=== PATIENT | female | born 1980 | race Caucasian/White ===

== ENCOUNTER 2022-04-21 16:14 | Inpatient (IN) | payer OTHER ==
[2022-04-21 20:42] VITALS: BMI 30.4
[2022-04-21] MEDS ORDERED: ACETAMINOPHEN 325 MG TABLET (FP) PO PRN (23:18)
[2022-04-21] MEDS ORDERED: MAGNESIUM HYDROX 2400MG/30ML ORAL SUSPENSION 30 ML CUP PO PRN (23:18)
[2022-04-21] MEDS ORDERED: P-EPHED 60MG/TRIPROLIDI 2.5MG TABLET PO PRN (23:18)
[2022-04-21] MEDS ORDERED: LOPERAMIDE HCL 2 MG CAPSULE PO PRN (23:18)
[2022-04-21] MEDS ORDERED: MAGNESIUM CITRATE 300 ML BOTTLE PO PRN (23:18)
[2022-04-21] MEDS ORDERED: MELATONIN 5 MG TABLETS PO PRN (23:18)
[2022-04-21] MEDS ORDERED: guaiFENesin 200 MG/10 ML 10 ML UNIT-DOSE CUPS PO PRN (23:18)
[2022-04-22] MEDS ORDERED: DIVALPROEX NA *ER* EXTEND REL 500 MG TABLET.SA (FP) PO SCH ×2 (10:00→22:00)
[2022-04-22] MEDS: BUDESONIDE/FORMETEROL FUMARATE 80/4.5 mcg INHALER IH SCH ×2 (12:45→21:33)
[2022-04-22] MEDS: PRENATAL VITAMINS W/ FOLIC ACID TABLET (FP) PO SCH (12:45)
[2022-04-22] MEDS: IBUPROFEN 400 MG TABLET (FP) PO PRN (13:35)
[2022-04-22 13:43] LABS: HEMATOCRIT 36.4 % (32.4-45.2); HEMOGLOBIN 12.2 GM/dL (10.7-15.3); MCH 30.6 pg (25.7-33.7); MCHC 33.4 g/dl (32.0-36.0); MEAN CELL VOLUME 91.4 fl (80-96); MEAN PLT VOLUME 9.2 fl (7.5-11.1); PLATELET COUNT 319 10^3/uL (134-434); RBC 3.98 M/mm3 (3.60-5.2); RDW 13.5 % (11.6-15.6); WHITE BLOOD COUNT 9.2 K/mm3 (4.0-10.0)
[2022-04-22 13:48] LABS: CALCIUM 8.4 mg/dL (8.5-10.1)
[2022-04-22 13:49] LABS: ALBUMIN 2.9 g/dl (3.4-5.0); BLOOD UREA NITROGEN 19.2 mg/dL (7-18)
[2022-04-22 13:52] LABS: CREATININE 0.7 mg/dL (0.55-1.3)
[2022-04-22 13:53] LABS: BILIRUBIN,TOTAL 0.3 mg/dL (0.2-1)
[2022-04-22 13:54] LABS: TOT PROT 5.8 g/dl (6.4-8.2)
[2022-04-22 15:23] VITALS: RESP 18
[2022-04-22] MEDS: BACITRACIN 0.9 GM PACKET TP SCH (19:53)
[2022-04-22] MEDS: MELATONIN 5 MG TABLETS PO SCH (21:33)
[2022-04-22] MEDS: THIAMINE HCL 100 MG TABLET (FP) PO SCH (21:33)
[2022-04-22] MEDS: DIVALPROEX *ER* 250 MG, DIVALPROEX *ER* 500 MG PO SCH (21:33)
[2022-04-22] MEDS ORDERED: OLANZapine 7.5 MG TABLET PO ONE (22:00)
[2022-04-22] MEDS ORDERED: OLANZAPINE 10 MG, OLANZAPINE 5 MG PO ONE (22:00)
[2022-04-23 10:14] LABS: URINE APPEARANCE CLEAR; URINE BILIRUBIN NEGATIVE (NEGATIVE); URINE COLOR YELLOW; URINE GLUCOSE (UA) NEGATIVE (NEGATIVE); URINE KETONE NEGATIVE (NEGATIVE); URINE LEUK ESTERASE NEGATIVE (NEGATIVE); URINE NITRITE NEGATIVE (NEGATIVE); URINE PROTEIN NEGATIVE (NEGATIVE); URINE UROBILINOGEN 0.2 mg/dL (0.2-1.0)
[2022-04-23] MEDS: BACITRACIN 0.9 GM PACKET TP SCH (11:29)
[2022-04-23] MEDS: DIVALPROEX *ER* 250 MG, DIVALPROEX *ER* 500 MG PO SCH ×2 (11:29→21:43)
[2022-04-23] MEDS: PRENATAL VITAMINS W/ FOLIC ACID TABLET (FP) PO SCH (11:29)
[2022-04-23] MEDS: BUDESONIDE/FORMETEROL FUMARATE 80/4.5 mcg INHALER IH SCH ×2 (11:30→21:42)
[2022-04-23] MEDS: IBUPROFEN 400 MG TABLET (FP) PO PRN (15:28)
[2022-04-23] MEDS: THIAMINE HCL 100 MG TABLET (FP) PO SCH (21:41)
[2022-04-23] MEDS: MELATONIN 5 MG TABLETS PO SCH (21:42)
[2022-04-23] MEDS: OLANZapine 7.5 MG TABLET PO SCH (21:44)
[2022-04-24] MEDS: BUDESONIDE/FORMETEROL FUMARATE 80/4.5 mcg INHALER IH SCH ×2 (12:17→21:45)
[2022-04-24] MEDS: DIVALPROEX *ER* 250 MG, DIVALPROEX *ER* 500 MG PO SCH ×2 (12:17→21:47)
[2022-04-24] MEDS: BACITRACIN 0.9 GM PACKET TP SCH (12:17)
[2022-04-24] MEDS: PRENATAL VITAMINS W/ FOLIC ACID TABLET (FP) PO SCH (12:18)
[2022-04-24] MEDS: IBUPROFEN 400 MG TABLET (FP) PO PRN (12:48)
[2022-04-24] MEDS: MAG HYDROX/AL HYDROX/SIMETH 30 ML UNIT-DOSE CUP PO PRN (16:34)
[2022-04-24] MEDS: MELATONIN 5 MG TABLETS PO SCH (21:46)
[2022-04-24] MEDS: OLANZapine 7.5 MG TABLET PO SCH (21:46)
[2022-04-24] MEDS: THIAMINE HCL 100 MG TABLET (FP) PO SCH (21:46)
[2022-04-25] MEDS: BUDESONIDE/FORMETEROL FUMARATE 80/4.5 mcg INHALER IH SCH ×2 (10:17→21:50)
[2022-04-25] MEDS: PRENATAL VITAMINS W/ FOLIC ACID TABLET (FP) PO SCH (10:17)
[2022-04-25] MEDS: DIVALPROEX *ER* 250 MG, DIVALPROEX *ER* 500 MG PO SCH ×2 (10:18→21:28)
[2022-04-25] MEDS: BACITRACIN 0.9 GM PACKET TP SCH (10:19)
[2022-04-25] MEDS: IBUPROFEN 400 MG TABLET (FP) PO PRN (11:17)
[2022-04-25] MEDS: MAG HYDROX/AL HYDROX/SIMETH 30 ML UNIT-DOSE CUP PO PRN (18:41)
[2022-04-25] MEDS: OLANZapine 7.5 MG TABLET PO SCH (21:28)
[2022-04-25] MEDS: MELATONIN 5 MG TABLETS PO SCH (21:28)
[2022-04-25] MEDS: THIAMINE HCL 100 MG TABLET (FP) PO SCH (21:28)
[2022-04-26] MEDS: PRENATAL VITAMINS W/ FOLIC ACID TABLET (FP) PO SCH (10:16)
[2022-04-26] MEDS: DIVALPROEX *ER* 250 MG, DIVALPROEX *ER* 500 MG PO SCH ×2 (10:16→21:33)
[2022-04-26] MEDS: BUDESONIDE/FORMETEROL FUMARATE 80/4.5 mcg INHALER IH SCH ×2 (10:17→21:33)
[2022-04-26] MEDS: BACITRACIN 0.9 GM PACKET TP SCH (10:43)
[2022-04-26] MEDS: OLANZapine 7.5 MG TABLET PO SCH (21:33)
[2022-04-26] MEDS: THIAMINE HCL 100 MG TABLET (FP) PO SCH (21:33)
[2022-04-26] MEDS: MELATONIN 5 MG TABLETS PO SCH (21:34)
[2022-04-27] MEDS: PRENATAL VITAMINS W/ FOLIC ACID TABLET (FP) PO SCH (10:44)
[2022-04-27] MEDS: BACITRACIN 0.9 GM PACKET TP SCH (10:45)
[2022-04-27] MEDS: DIVALPROEX *ER* 250 MG, DIVALPROEX *ER* 500 MG PO SCH ×2 (10:45→21:31)
[2022-04-27] MEDS: BUDESONIDE/FORMETEROL FUMARATE 80/4.5 mcg INHALER IH SCH ×2 (10:46→21:32)
[2022-04-27] MEDS: IBUPROFEN 400 MG TABLET (FP) PO PRN (19:56)
[2022-04-27] MEDS: THIAMINE HCL 100 MG TABLET (FP) PO SCH (21:31)
[2022-04-27] MEDS: OLANZapine 7.5 MG TABLET PO SCH (21:31)
[2022-04-27] MEDS: MELATONIN 5 MG TABLETS PO SCH (21:32)
[2022-04-28] MEDS: DIVALPROEX *ER* 250 MG, DIVALPROEX *ER* 500 MG PO SCH ×2 (10:18→21:48)
[2022-04-28] MEDS: BUDESONIDE/FORMETEROL FUMARATE 80/4.5 mcg INHALER IH SCH ×2 (10:18→21:50)
[2022-04-28] MEDS: PRENATAL VITAMINS W/ FOLIC ACID TABLET (FP) PO SCH (10:18)
[2022-04-28] MEDS: BACITRACIN 0.9 GM PACKET TP SCH (10:19)
[2022-04-28] MEDS: OLANZapine 7.5 MG TABLET PO SCH (21:49)
[2022-04-28] MEDS: MELATONIN 5 MG TABLETS PO SCH (21:49)
[2022-04-28] MEDS: THIAMINE HCL 100 MG TABLET (FP) PO SCH (21:49)
[2022-04-29] MEDS: BUDESONIDE/FORMETEROL FUMARATE 80/4.5 mcg INHALER IH SCH ×2 (10:23→21:36)
[2022-04-29] MEDS: PRENATAL VITAMINS W/ FOLIC ACID TABLET (FP) PO SCH (10:23)
[2022-04-29] MEDS: DIVALPROEX *ER* 250 MG, DIVALPROEX *ER* 500 MG PO SCH ×2 (10:24→21:34)
[2022-04-29] MEDS: BACITRACIN 0.9 GM PACKET TP SCH (10:25)
[2022-04-29] MEDS: OLANZapine 7.5 MG TABLET PO SCH (21:34)
[2022-04-29] MEDS: THIAMINE HCL 100 MG TABLET (FP) PO SCH (21:34)
[2022-04-29] MEDS: MELATONIN 5 MG TABLETS PO SCH (21:34)
[2022-04-30] MEDS ORDERED: NICOTINE 10 MG CARTRIDGE (INHALER) IH PRN (09:39)
[2022-04-30] MEDS: BUDESONIDE/FORMETEROL FUMARATE 80/4.5 mcg INHALER IH SCH ×2 (10:23→23:20)
[2022-04-30] MEDS: PRENATAL VITAMINS W/ FOLIC ACID TABLET (FP) PO SCH (10:23)
[2022-04-30] MEDS: BACITRACIN 0.9 GM PACKET TP SCH (10:23)
[2022-04-30] MEDS: DIVALPROEX *ER* 250 MG, DIVALPROEX *ER* 500 MG PO SCH ×2 (10:24→21:48)
[2022-04-30] MEDS: IBUPROFEN 400 MG TABLET (FP) PO PRN (16:02)
[2022-04-30] MEDS: THIAMINE HCL 100 MG TABLET (FP) PO SCH (21:48)
[2022-04-30] MEDS: MELATONIN 5 MG TABLETS PO SCH (21:48)
[2022-04-30] MEDS: OLANZapine 7.5 MG TABLET PO SCH (21:48)
[2022-05-01 08:25] VITALS: TEMP 97.5
[2022-05-01] MEDS: PRENATAL VITAMINS W/ FOLIC ACID TABLET (FP) PO SCH (10:52)
[2022-05-01] MEDS: BUDESONIDE/FORMETEROL FUMARATE 80/4.5 mcg INHALER IH SCH ×2 (10:52→21:17)
[2022-05-01] MEDS: BACITRACIN 0.9 GM PACKET TP SCH (10:52)
[2022-05-01] MEDS: DIVALPROEX *ER* 250 MG, DIVALPROEX *ER* 500 MG PO SCH ×2 (10:53→21:15)
[2022-05-01] MEDS: IBUPROFEN 400 MG TABLET (FP) PO PRN (16:33)
[2022-05-01] MEDS: MAG HYDROX/AL HYDROX/SIMETH 30 ML UNIT-DOSE CUP PO PRN (19:45)
[2022-05-01] MEDS: THIAMINE HCL 100 MG TABLET (FP) PO SCH (21:16)
[2022-05-01] MEDS: MELATONIN 5 MG TABLETS PO SCH (21:16)
[2022-05-01] MEDS: OLANZapine 7.5 MG TABLET PO SCH (21:16)
[2022-05-02 08:39] VITALS: BP 125/77; PULSE 73
[2022-05-02] MEDS: BACITRACIN 0.9 GM PACKET TP SCH (10:34)
[2022-05-02] MEDS: DIVALPROEX *ER* 250 MG, DIVALPROEX *ER* 500 MG PO SCH (10:34)
[2022-05-02] MEDS: BUDESONIDE/FORMETEROL FUMARATE 80/4.5 mcg INHALER IH SCH (10:35)
[2022-05-02] MEDS: PRENATAL VITAMINS W/ FOLIC ACID TABLET (FP) PO SCH (10:35)
[2022-05-02] MEDS: MAG HYDROX/AL HYDROX/SIMETH 30 ML UNIT-DOSE CUP PO PRN (10:37)
[2022-05-02] MEDS: IBUPROFEN 400 MG TABLET (FP) PO PRN (16:55)
== END 2022-05-02 18:07 | disposition home or self-care (01) | DRG 772 ==
LOC: YASAS 16:14 → Y5N 04-22 11:46
PROVIDERS: ADMIT Allergy & Immunology; ATTEND Psychiatry & Neurology Pain Medicine
PROC: HZ42ZZZ Group Counseling for Substance Abuse Treatment, Cognitive-Behavioral (ICD-10-PCS; principal; 2022-04-22)
DX: F10.230 Alcohol dependence with withdrawal, uncomplicated (principal); F14.20 Cocaine dependence, uncomplicated; F12.20 Cannabis dependence, uncomplicated; F15.10 Other stimulant abuse, uncomplicated; F31.9 Bipolar disorder, unspecified; F25.9 Schizoaffective disorder, unspecified; F19.24 Other psychoactive substance dependence with psychoactive substance-induced mood disorder; F19.282 Other psychoactive substance dependence with psychoactive substance-induced sleep disorder; R73.9 Hyperglycemia, unspecified; Z91.013 Allergy to seafood; Z62.810 Personal history of physical and sexual abuse in childhood; Z91.410 Personal history of adult physical and sexual abuse; Z86.69 Personal history of other diseases of the nervous system and sense organs; Z56.0 Unemployment, unspecified; Z59.01 Sheltered homelessness
CPT/HCPCS: 36415; 80053; 81003; 81025; 82962; 85027; 86780; C9803-CS; U0003; U0005

== ENCOUNTER 2025-02-02 13:25 | Inpatient (IN) | payer OTHER ==
[2025-02-02 13:49] VITALS: BMI 33.3
[2025-02-02] MEDS ORDERED: guaiFENesin 600 MG TABLET.ER (FP) PO PRN (14:54)
[2025-02-02] MEDS ORDERED: ONDANSETRON *ODT* 4 MG TABLET SL PRN (14:54)
[2025-02-02] MEDS ORDERED: NALOXONE (NARCAN) HCL 4 MG/0.1 ML SPRAY NS PRN (14:54)
[2025-02-02] MEDS ORDERED: ACETAMINOPHEN 325 MG TABLET (FP) PO PRN (14:54)
[2025-02-02] MEDS ORDERED: MAGNESIUM HYDROX 2400MG/30ML ORAL SUSPENSION 30 ML CUP PO PRN (14:54)
[2025-02-02] MEDS ORDERED: POLYETHYLENE GLYCOL (HEALTHYLAX) 3350 17 GM PACKET PO PRN (14:54)
[2025-02-02] MEDS ORDERED: BENZOCAINE/MENTHOL (CHLORASEPTIC ) LOZENGE MM PRN (14:54)
[2025-02-02] MEDS ORDERED: BISMUTH SUBSALICYLATE 262 MG/15 ML BTL PO PRN (14:54)
[2025-02-02] MEDS ORDERED: LOPERAMIDE HCL 2 MG CAPSULE PO PRN (14:54)
[2025-02-02] MEDS ORDERED: BENZONATATE 200 MG CAPSULE PO PRN (14:54)
[2025-02-02] MEDS ORDERED: IBUPROFEN 400 MG TABLET (FP) PO PRN (14:54)
[2025-02-02] MEDS ORDERED: IBUPROFEN 600 MG TABLET (FP) PO PRN (14:54)
[2025-02-02] MEDS ORDERED: MAG HYDROX/AL HYDROX/SIMETH 30 ML UNIT-DOSE CUP PO PRN (14:54)
[2025-02-02] MEDS: THIAMINE 100 MG TABLET PO SCH (22:29)
[2025-02-02] MEDS: METHOCARBAMOL 500 MG TABLET PO PRN (22:29)
[2025-02-02] MEDS: MELATONIN 5 MG TABLETS PO SCH (22:29)
[2025-02-02] MEDS: diazePAM 5 MG TABLET PO SCH (22:29)
[2025-02-02] MEDS: ALBUTEROL SO4 HFA INHALER IH PRN (22:31)
[2025-02-03] MEDS: BUDESONIDE/FORMETEROL FUMARATE 80/4.5 mcg INHALER IH SCH (10:15)
[2025-02-03] MEDS: PRENATAL VITAMINS W/ FOLIC ACID TABLET (FP) PO SCH (10:15)
[2025-02-03] MEDS: DICYCLOMINE HCL 10 MG CAPSULE PO PRN (10:18)
[2025-02-03] MEDS: hydrOXYzine PAMOATE 25 MG CAPSULE (FP) PO PRN (10:18)
[2025-02-03 10:56] LABS: HEMOGLOBIN 12.7 g/dL (11.2-15.7); MCHC 32.6 g/dl (32.2-35.5); MEAN CELL VOLUME 90.3 fl (79.4-94.8); MEAN PLT VOLUME 11.1 fl (9.4-12.3); PLATELET COUNT 387 x10^3/uL (182-369); RDW 13.2 % (12.2-17.1)
[2025-02-03 11:16] LABS: CHLORIDE 111 mmol/L (98-107); POTASSIUM 3.9 mmol/L (3.5-5.1); SODIUM 141 mmol/L (136-145)
[2025-02-03 12:05] LABS: ALBUMIN 3.3 g/dl (3.4-5.0); ANION GAP 7 mmol/L (4-13); BLOOD UREA NITROGEN 5.1 mg/dL (7-18); CALCIUM 9.3 mg/dL (8.5-10.1); CO2 23 mmol/L (21-32); GLUCOSE,RANDOM 106 mg/dL (74-106)
[2025-02-03 12:08] LABS: CREATININE 0.6 mg/dL (0.55-1.3); SGOT/AST 13 U/L (15-37); SGPT/ALT 26 U/L (13-61)
[2025-02-03 12:09] LABS: ALK PHOS 70 U/L (45-117)
[2025-02-03 12:11] LABS: BILIRUBIN,TOTAL 0.2 mg/dL (0.2-1)
[2025-02-03] MEDS: DIVALPROEX NA *ER* EXTEND REL 500 MG TABLET.SA (FP) PO SCH (13:45)
[2025-02-03] MEDS: QUEtiapine FUMARATE 200 MG TABLET PO SCH (22:48)
[2025-02-04] MEDS: diazePAM 5 MG TABLET PO SCH (06:19)
[2025-02-04] MEDS: diazePAM 5 MG TABLET PO PRN (10:19)
[2025-02-05] MEDS: diazePAM 5 MG TABLET PO SCH (06:20)
[2025-02-06] MEDS: diazePAM 5 MG TABLET PO ONE (05:56)
[2025-02-06 09:22] VITALS: BP 137/87; PULSE 90; RESP 17; TEMP 97.1
== END 2025-02-06 09:39 | disposition home or self-care (01) | DRG 773 ==
LOC: YASAS 13:25 → Y3N 15:48
PROVIDERS: ADMIT Allergy & Immunology; ATTEND Allergy & Immunology
PROC: HZ2ZZZZ Detoxification Services for Substance Abuse Treatment (ICD-10-PCS; principal; 2025-02-02)
DX: F10.230 Alcohol dependence with withdrawal, uncomplicated (principal); F13.230 Sedative, hypnotic or anxiolytic dependence with withdrawal, uncomplicated; F11.20 Opioid dependence, uncomplicated; F12.20 Cannabis dependence, uncomplicated; F15.10 Other stimulant abuse, uncomplicated; F19.282 Other psychoactive substance dependence with psychoactive substance-induced sleep disorder; F19.24 Other psychoactive substance dependence with psychoactive substance-induced mood disorder; F31.9 Bipolar disorder, unspecified; F41.9 Anxiety disorder, unspecified; G40.909 Epilepsy, unspecified, not intractable, without status epilepticus
CPT/HCPCS: 36415; 80053; 80305; 80307; 81025; 85027; 86780; 93005; 93010